=== PATIENT | male | born 1965 | race Caucasian/White ===

== ENCOUNTER 2016-09-02 12:06 | Emergency (ER) | payer BC ==
[~2016-09-02] VITALS: Ht 175.3 cm; Wt 141.0 kg
[2016-09-02] MEDS ORDERED: ASPIRIN 81MG TABLET PO ONE (12:45)
[2016-09-02] MEDS ORDERED: NITROGLYCERIN 0.4MG TABLET SL SL PRN (12:45)
[2016-09-02 13:17] LABS: BASOPHILS % 0.6 % (0.0-2.0); HEMATOCRIT. 41.8 % (42.0-52.0); HEMOGLOBIN. 14.1 g/dL (14.0-18.0); LYMPHOCYTES % 28.4 % (20.0-50.0); MEAN CORPUSCULAR HEMOGLOBIN 26.3 pg (28.0-32.0); MEAN CORPUSCULAR VOLUME 78.3 fL (80.0-94.0); MEAN PLATELET VOLUME 6.8 fl (7.4-10.4); MONOCYTES % 7.8 % (2.0-8.0); NEUTROPHILS % 61.2 % (40.0-76.0); PLATELET 303 x1000/uL (130-400); RED BLOOD CELL COUNT 5.34 mill/uL (4.7-6.1); RED CELL DISTRIBUTION WIDTH 14.2 % (11.6-14.6)
[2016-09-02 13:26] LABS: CHLORIDE 108 mEq/L (98-107)
[2016-09-02 13:30] LABS: CARBON DIOXIDE 26 mEq/L (21-32)
[2016-09-02 13:31] LABS: PROTHROMBIN TIME 10.7 sec
[2016-09-02 13:35] LABS: TROPONIN I < 0.02 ng/mL (0.00-0.04)
[2016-09-02 14:33] VITALS: BP 128/68
== END 2016-09-02 14:41 | disposition home or self-care (01) ==
LOC: ER 12:06
DX: R07.89 Other chest pain (principal); I10 Essential (primary) hypertension; M10.9 Gout, unspecified
CPT/HCPCS: 36415; 71010; 80053; 83880; 84484; 85025; 85610; 93005; 99285; Z7610